=== PATIENT | female | born 1970 | race Caucasian/White ===

== ENCOUNTER 2019-04-28 14:50 | Emergency (ER) | payer SELFPAY ==
[2019-04-28 15:09] VITALS: BP 181/107; PULSE 106
--- NOTE | 2019-04-28 15:19 | EDM.PDOC ---
ED HPI GENERAL MEDICAL PROBLEM - General Chief Complaint: ENT Problem Stated Complaint: SINUS INFECTION Time Seen by Provider: 04/28/19 15:00 Source of Information: Reports: Patient History Limitations: Reports: No Limitations - History of Present Illness INITIAL COMMENTS - FREE TEXT/NARRATIVE: HISTORY AND PHYSICAL: History of present illness: Patient is a 49-year-old female presents to the ED today with concern of right sinus pain 3 weeks. Patient states 3 weeks ago she was seen in the clinic and given a Z-Gato which she states did not resolve her sinus pain. Patient states she has a history of sinus infections in the past which took it resolved with antibiotics. Patient states she has a history of lupus but denies any other health history. Patient denies any other symptoms or concerns. Patient denies fever, chills, chest pain, shortness of breath, or cough. Denies headache, neck stiff ness, change in vision, syncope, or near syncope. Denies nausea, vomiting, abdominal pain, diarrhea, constipation, or dysuria. Has not noted any blood in urine or stool. Patient has been eating and drinking appropriately. Review of systems: As per history of present illness and below otherwise all systems reviewed and negative. Past medical history: As per history of present illness and as reviewed below otherwise noncontributory. Surgical history: As per history of present illness and as reviewed below otherwise noncontributory. Social history: See social history for further information Family history: As per history of present illness and as reviewed below otherwise noncontributory. Physical exam: General: Patient is alert, oriented, and in no acute distress. Patient sitting comfortably on exam table. HEENT: Atraumatic, normocephalic, pupils equal and reactive bilaterally, negative for conjunctival pallor or scleral icterus, mucous membranes moist, TMs normal bilaterally, throat clear, neck supple, nontender, trachea midline. No drooling or trismus noted. No meningeal signs. No hot potato voice noted. Mild maxillary sinus tenderness to the right. Lungs: Clear to auscultation, breath sounds equal bilaterally, chest nontender. Heart: S1S2, regular rate and rhythm without overt murmur Abdomen: Soft, nondistended, nontender. Negative for masses or hepatosplenomegaly. Negative for costovertebral tenderness. Pelvis: Stable nontender. Genitourinary: Deferred. Rectal: Deferred. Skin: Intact, warm, dry. No lesions or rashes noted. Extremities: Atraumatic, negative for cords or calf pain. Neurovascular unremarkable. Neuro: Awake, alert, oriented. Cranial nerves II through XII unremarkable. Cerebellum unremarkable. Motor and sensory unremarkable throughout. Exam nonfocal. Notes: Importance for follow-up with a primary care provider. Voices understanding and is agreeable to plan of care. Denies any further questions or concerns at this time. Diagnostics: None Therapeutics: None Prescription: Augmentin Impression: Right acute maxillary sinusitis Plan: 1. Take medication as prescribed. You can alternate ibuprofen and Tylenol as directed for pain and discomfort. 2. Follow-up with her primary care provider as discussed. Return to the ED as needed and as discussed. Definitive disposition and diagnosis as appropriate pending reevaluation and review of above. General Pain Score (Numeric/FACES): 6 - Related Data Allergies Allergy/AdvReac Type Severity Reaction Status Date / Time No Known Allergies Allergy Verified 04/28/19 15:09 Home Meds: Home Meds Amoxicillin/Clavulanate K [Augmentin 875-125 MG] 1 tab PO BID 7 Days #14 tablet 04/28/19 [Rx] FLUoxetine [PROzac] 10 mg PO DAILY 04/28/19 [History] LORazepam 04/28/19 [History] Past Medical History Psychiatric History: Reports: Anxiety Immunologic History: Reports: SLE - Infectious Disease History Infectious Disease History: Reports: Chicken Pox Social & Family History - Family History Family Medical History: Noncontributory - Tobacco Use Smoking Status *Q: Never Smoker - Caffeine Use Caffeine Use: Reports: None - Recreational Drug Use Recreational Drug Use: No ED ROS GENERAL - Review of Systems Review Of Systems: ROS reveals no pertinent complaints other than HPI. ED EXAM, GENERAL - Physical Exam Exam: See Below (See dictation) Course - Vital Signs Last Recorded V/S: Last Vital Signs Temp 97.4 F 04/28/19 15:05 Pulse 106 H 04/28/19 15:05 Resp 16 04/28/19 15:05 BP 181/107 H 04/28/19 15:05 Pulse Ox 93 L 04/28/19 15:05 Departure - Departure Time of Disposition: 15:18 Disposition: Home, Self-Care 01 Clinical Impression: Acute maxillary sinusitis Qualifiers: Recurrence: recurrent Qualified Code(s): J01.01 - Acute recurrent maxillary sinusitis - Discharge Information Prescriptions: Amoxicillin/Clavulanate K [Augmentin 875-125 MG] 1 tab PO BID 7 Days #14 tablet Referrals: PCP,None [Primary Care Provider] - Additional Instructions: The following information is given to patients seen in the emergency department who are being discharged to home. This information is to outline your options for follow-up care. We provide all patients seen in our emergency department with a follow-up referral. The need for follow-up, as well as the timing and circumstances, are variable depending upon the specifics of your emergency department visit. If you don't have a primary care physician on staff, we will provide you with a referral. We always advise you to contact your personal physician following an emergency department visit to inform them of the circumstance of the visit and for follow-up with them and/or the need for any referrals to a consulting specialist. The emergency department will also refer you to a specialist when appropriate. This referral assures that you have the opportunity for follow-up care with a specialist. All of these measure are taken in an effort to provide you with optimal care, which includes your follow-up. Under all circumstances we always encourage you to contact your private physician who remains a resource for coordinating your care. When calling for follow-up care, please make the office aware that this follow-up is from your recent emergency room visit. If for any reason you are refused follow-up, please contact the [facility] at and asked to speak to the emergency department charge nurse. [facility] [address] [place] [id number] [facility] [address] [place] [id number] 1. Take medication as prescribed. You can alternate ibuprofen and Tylenol as directed for pain and discomfort. 2. Follow-up with her primary care provider as discussed. Return to the ED as needed and as discussed.
== END 2019-04-28 15:28 | disposition home or self-care (01) ==
LOC: MW.ED 14:50
DX: J01.01 Acute recurrent maxillary sinusitis (principal); F41.9 Anxiety disorder, unspecified; Z79.899 Other long term (current) drug therapy
CPT/HCPCS: 99283

== ENCOUNTER 2019-07-01 15:52 | Emergency (ER) | payer SELFPAY ==
[2019-07-01 16:10] VITALS: BP 138/93
[2019-07-01] MEDS ORDERED: Sodium Chloride 0.9% 1,000 ML IV ONE (16:24)
[2019-07-01] MEDS ORDERED: Albuterol/Ipratropium 3.0-0.5 MG/3 ML Neb Soln NEB ONE (16:24)
[2019-07-01] MEDS ORDERED: methylPREDNISolone Sodium Succinate 125 MG/2 ML SDV IVPUSH ONE (16:24)
--- NOTE | 2019-07-01 17:38 | CR ---
INDICATION: wheezing TECHNIQUE: Chest 1 view. COMPARISON: None. FINDINGS: Cardiovascular and mediastinum: Heart size and vasculature are normal in caliber and appearance. Mediastinum is within normal limits. Lungs and pleural space: Lungs are clear. No sign of infiltrate or mass. No sign of pleural effusion. No pneumothorax. Bones and soft tissues: No significant findings. IMPRESSION: Unremarkable chest. Dictated by: Dev Mercado MD @ 07/01/2019 17:36:17 (Electronically Signed)
[2019-07-01 17:42] LABS: BLOOD UREA NITROGEN,BUN 11 mg/dL (7.0-18.0); CARBON DIOXIDE,CO2 26.7 mmol/L (21.0-32.0); CHLORIDE,CL 99 mmol/L (98-107); GLUCOSE RANDOM 121 mg/dL (74-106); POTASSIUM,K 3.5 mmol/L (3.5-5.1); SODIUM,NA 137 mmol/L (136-145)
[2019-07-01] MEDS ORDERED: Acetaminophen/HYDROcodone 325-5 MG Tab PO ONE (17:51)
[2019-07-01] MEDS ORDERED: Levofloxacin 500 MG Tab PO ONE (17:53)
--- NOTE | 2019-07-01 18:01 | EDM.PDOC ---
ED HPI GENERAL MEDICAL PROBLEM - General Chief Complaint: General Stated Complaint: FLU LIKE SYMPTOMS Time Seen by Provider: 07/01/19 16:15 Source of Information: Reports: Patient History Limitations: Reports: No Limitations - History of Present Illness INITIAL COMMENTS - FREE TEXT/NARRATIVE: This 49 year old female presents to the ED with a chief complaint of coughing and wheezing that has gotten worse over the last week. She states that she is on Albuterol at home but that it has not been working this time. She also complains of frontal sinus infection that is chronic and also causes her to have headaches. She states that she has had the sinus problems for several months. She denies any chest pain SOB or any other symptoms at this time. Onset: Gradual (over one week.) Duration: Waxing/Waning Location: Reports: Chest. Denies: Radiates to (tightness and wheezing.) Severity: Mild (mild to moderate.) Improves with: Reports: Rest, Other (sometimes her breathing treatment.) Worsens with: Reports: Breathing (and physical activity) Context: Reports: Activity Associated Symptoms: Reports: Cough, Headaches (mild frontal headache for the past several months), Shortness of Breath (secondary to wheezing.). Denies: Chest Pain, cough w sputum, Diaphoresis, Fever/Chills, Nausea/Vomiting, Syncope generalized Pain Score (Numeric/FACES): 8 - Related Data Allergies Allergy/AdvReac Type Severity Reaction Status Date / Time No Known Allergies Allergy Verified 07/01/19 16:11 Home Meds: Home Meds FLUoxetine [PROzac] 10 mg PO DAILY 04/28/19 [History] LORazepam 04/28/19 [History] Levofloxacin [Levaquin] 500 mg PO DAILY 10 Days #10 tablet 07/01/19 [Rx] guaiFENesin/Dextromethorphan [Mucinex Dm ER 600-30 mg Tablet] 1 each PO Q12HR # 20 tab.er.12h 07/01/19 [Rx] Past Medical History Respiratory History: Reports: Asthma Musculoskeletal History: Reports: RA Psychiatric History: Reports: Anxiety Other Endocrine/Metabolic History: lupus Immunologic History: Reports: SLE - Infectious Disease History Infectious Disease History: Reports: Chicken Pox Social & Family History - Family History Family Medical History: Noncontributory - Tobacco Use Smoking Status *Q: Never Smoker - Caffeine Use Caffeine Use: Reports: None - Recreational Drug Use Recreational Drug Use: No ED ROS GENERAL - Review of Systems Review Of Systems: See Below Constitutional: Reports: Fever (mild fever.) HEENT: Reports: Sinus Problem (frontal) Respiratory: Reports: Wheezing, Cough. Denies: Pleuritic Chest Pain, Sputum, Hemoptysis Cardiovascular: Reports: No Symptoms. Denies: Dyspnea on Exertion, Edema, Lightheadedness, Orthopnea, Palpitations, Syncope Endocrine: Reports: No Symptoms GI/Abdominal: Reports: No Symptoms : Reports: No Symptoms Musculoskeletal: Reports: No Symptoms Skin: Reports: No Symptoms Neurological: Reports: No Symptoms Psychiatric: Reports: No Symptoms Hematologic/Lymphatic: Reports: No Symptoms Immunologic: Reports: No Symptoms ED EXAM, GENERAL - Physical Exam Exam: See Below Exam Limited By: No Limitations General Appearance: Alert, Mild Distress (she is noted to be wheezing.) Eye Exam: Bilateral Eye: Normal Fundi, Normal Inspection, PERRL Ears: Normal External Exam, Normal Canal, Hearing Grossly Normal, Normal TMs Ear Exam: Bilateral Ear: Auricle Normal, Canal Normal, TM normal Nose: Other (nasal congestion noted) Throat/Mouth: Normal Inspection, Normal Lips, Normal Teeth, Normal Gums, Normal Oropharynx, Normal Voice, No Airway Compromise Head: Atraumatic, Normocephalic, Sinus Tenderness (Frontal area to percussion.) Neck: Normal Inspection, Supple, Non-Tender, Full Range of Motion Respiratory/Chest: No Accessory Muscle Use, Wheezing (in the apex of the chest.) , Prolonged Expiration. No: Stridor, Pleural Rub, Accessory Muscle Use Cardiovascular: Normal Peripheral Pulses, Regular Rate, Rhythm, No Edema, No Gallop, No JVD, No Murmur, No Rub Peripheral Pulses: 3+: Radial (L), Radial (R), Dorsalis Pedis (L), Dorsalis Pedis (R), 4+: Carotid (L), Carotid (R) GI/Abdominal: Normal Bowel Sounds, Soft, Non-Tender, No Organomegaly, No Distention, No Abnormal Bruit, No Mass Back Exam: Normal Inspection, Full Range of Motion, NT Extremities: Normal Inspection, Normal Range of Motion, Non-Tender, Normal Capillary Refill, No Pedal Edema Neurological: Alert, Oriented, CN II-XII Intact, Normal Cognition, Normal Gait, Normal Reflexes, No Motor/Sensory Deficits Psychiatric: Normal Affect, Normal Mood Skin Exam: Warm, Dry, Intact, Normal Color, No Rash Lymphatic: No Adenopathy Course - Vital Signs Last Recorded V/S: Last Vital Signs Temp 96.8 F 07/01/19 16:09 Pulse 102 H 07/01/19 16:09 Resp 20 07/01/19 16:09 BP 138/93 H 07/01/19 16:09 Pulse Ox 96 07/01/19 16:09 - Orders/Labs/Meds Orders: Active Orders 24 hr Category Date Time Status RT Aerosol Therapy [RC] ASDIRECTED Care 07/01/19 16:25 Active levoFLOXacin [Levaquin] Med 07/01/19 17:53 Once 500 mg PO ONETIME ONE Medication Orders Levofloxacin (Levaquin) 500 mg PO ONETIME ONE Stop: 07/01/19 17:54 Labs: Laboratory Tests 07/01/19 07/01/19 Range/Units 16:50 16:50 WBC 13.76 H (4.0-11.0) K/uL RBC 5.08 (4.30-5.90) M/uL Hgb 14.3 (12.0-16.0) g/dL Hct 43.2 (36.0-46.0) % MCV 85.0 (80.0-98.0) fL MCH 28.1 (27.0-32.0) pg MCHC 33.1 (31.0-37.0) g/dL RDW Std Deviation 41.5 (28.0-62.0) fl RDW Coeff of Lorin 13 (11.0-15.0) % Plt Count 317 (150-400) K/uL MPV 9.50 (7.40-12.00) fL Neut % (Auto) 59.3 (48.0-80.0) % Lymph % (Auto) 33.2 (16.0-40.0) % Dickinson % (Auto) 5.0 (0.0-15.0) % Eos % (Auto) 2.3 (0.0-7.0) % Baso % (Auto) 0.2 (0.0-1.5) % Neut # (Auto) 8.2 H (1.4-5.7) K/uL Lymph # (Auto) 4.6 H (0.6-2.4) K/uL Dickinson # (Auto) 0.7 (0.0-0.8) K/uL Eos # (Auto) 0.3 (0.0-0.7) K/uL Baso # (Auto) 0.0 (0.0-0.1) K/uL Nucleated RBC % 0.0 /100WBC Nucleated RBCs # 0 K/uL Sodium 137 (136-145) mmol/L Potassium 3.5 (3.5-5.1) mmol/L Chloride 99 (98-107) mmol/L Carbon Dioxide 26.7 (21.0-32.0) mmol/L BUN 11 (7.0-18.0) mg/dL Creatinine 0.8 (0.6-1.0) mg/dL Est Cr Clr Drug Dosing 68.02 mL/min Estimated GFR (MDRD) > 60.0 ml/min Glucose 121 H (74-106) mg/dL Calcium 9.0 (8.5-10.1) mg/dL Magnesium 1.9 (1.8-2.4) mg/dL Total Bilirubin 0.7 (0.2-1.0) mg/dL AST 26 (15-37) IU/L ALT 31 (14-63) IU/L Alkaline Phosphatase 101 (46-116) U/L Total Protein 8.4 H (6.4-8.2) g/dL Albumin 3.7 (3.4-5.0) g/dL Globulin 4.7 H (2.6-4.0) g/dL Albumin/Globulin Ratio 0.8 L (0.9-1.6) Meds: Medications Generic Name Dose Route Start Last Admin Trade Name Freq PRN Reason Stop Dose Admin Levofloxacin 500 mg 07/01/19 17:53 Levaquin PO 07/01/19 17:54 ONETIME ONE Discontinued Medications Generic Name Dose Route Start Last Admin Trade Name Freq PRN Reason Stop Dose Admin Hydrocodone Bitart/Acetaminophen 1 tab 07/01/19 17:51 [place] 325-5 Mg PO 07/01/19 17:52 ONETIME ONE Albuterol/Ipratropium 3 ml 07/01/19 16:24 07/01/19 16:36 Duoneb 3.0-0.5 Mg/3 Ml NEB 07/01/19 16:25 3 ml ONETIME ONE Administration Sodium Chloride 1,000 mls @ 999 mls/hr 07/01/19 16:24 07/01/19 16:38 Normal Saline IV 07/01/19 17:24 999 mls/hr .Bolus ONE Administration Methylprednisolone Sodium Succinate 125 mg 07/01/19 16:24 07/01/19 16:37 Solu-Medrol IVPUSH 07/01/19 16:25 125 mg ONETIME ONE Administration Departure - Departure Time of Disposition: 18:11 Disposition: Home, Self-Care 01 Condition: Good (The patient is much improved after duoneb and solu-medrol with 1,000 ml of NS.) Clinical Impression: Acute maxillary sinusitis Qualifiers: Recurrence: recurrent Qualified Code(s): J01.01 - Acute recurrent maxillary sinusitis Asthma exacerbation attacks Qualifiers: Asthma severity: moderate - Discharge Information *PRESCRIPTION DRUG MONITORING PROGRAM REVIEWED*: No *COPY OF PRESCRIPTION DRUG MONITORING REPORT IN PATIENT GABRIELLE: No Instructions: Asthma, Adult, Sinusitis, Adult Referrals: PCP,Not In Area [Primary Care Provider] - Additional Instructions: Follow up with your PCP in the next two to four days. Take all medications as directed. Drink plenty of clear liquids over the next two to three days. Return to the ED if your condition gets worse or should you have any other concerns. Sepsis Event Note - Evaluation Sepsis Screening Result: No Definite Risk - Focused Exam Vital Signs: Vital Signs Temp Pulse Resp BP Pulse Ox 07/01/19 16:09 96.8 F 102 H 20 138/93 H 96 Date Exam was Performed: 07/01/19 Time Exam was Performed: 17:55 - My Orders Last 24 Hours: My Active Orders 07/01/19 16:25 RT Aerosol Therapy [RC] ASDIRECTED 07/01/19 17:53 levoFLOXacin [Levaquin] 500 mg PO ONETIME ONE - Assessment/Plan Last 24 Hours: My Active Orders 07/01/19 16:25 RT Aerosol Therapy [RC] ASDIRECTED 07/01/19 17:53 levoFLOXacin [Levaquin] 500 mg PO ONETIME ONE
[2019-07-01 19:17] VITALS: PULSE 96
== END 2019-07-01 18:50 | disposition home or self-care (01) ==
LOC: MW.ED 15:52
DX: J01.01 Acute recurrent maxillary sinusitis (principal); J45.901 Unspecified asthma with (acute) exacerbation; M06.9 Rheumatoid arthritis, unspecified; F41.9 Anxiety disorder, unspecified; Z79.899 Other long term (current) drug therapy
CPT/HCPCS: 36415; 71045; 80053; 83735; 85025; 87804; 94640; 96361; 96374; 99285; A9270; J2930; J7030; J7620-GY

== ENCOUNTER 2019-08-28 10:09 | Emergency (ER) | payer SELFPAY ==
--- NOTE | 2019-08-28 10:53 | CR ---
Left elbow: 3 views of the left elbow were obtained. Comparison: No prior elbow study. Joint spaces are maintained. No joint effusion is identified. No acute fracture or other bony abnormality is identified. Impression: 1. No abnormality is identified on left elbow exam. Diagnostic code #1 This report was dictated in [place] Standard Time
[2019-08-28 10:55] VITALS: BP 138/98; PULSE 103
[2019-08-28] MEDS ORDERED: Diphtheria,Pertussis(Acell),Tetanus Vaccine 0.5 ML Syringe IM ONE (11:39)
[2019-08-28] MEDS ORDERED: Octyl 2-Cyanoacrylate 1 Tube TOP ONE (11:39)
--- NOTE | 2019-08-28 11:41 | EDM.PDOC ---
ED HPI GENERAL MEDICAL PROBLEM - General Chief Complaint: Upper Extremity Injury/Pain Stated Complaint: FELL DOWN STAIRS LEFT ELBOW PAIN Time Seen by Provider: 08/28/19 11:32 Source of Information: Reports: Patient History Limitations: Reports: No Limitations - History of Present Illness INITIAL COMMENTS - FREE TEXT/NARRATIVE: HISTORY AND PHYSICAL: History of present illness: Patient is a 49-year-old female who presents to the ED today with concern of left elbow pain and left knee pain after a fall that occurred earlier this morning. Patient states she was walking down the stairs and the stairs in her apartment building are too narrow. Patient states the step itself is not big enough to fit a full length of the foot and was built incorrectly. Patient states she was with her and slipped down the last 2-3 steps and hit her left elbow on the step. Patient states she is also has some left knee pain but her main concern is her left elbow. Patient states she did not hit her head or lose consciousness and was not dizzy before the event. Patient denies any other symptoms or concerns. Patient states she has not up-to-date on her tetanus. Patient denies fever, chills, chest pain, shortness of breath, or cough. Denies headache, neck stiff ness, change in vision, syncope, or near syncope. Denies nausea, vomiting, abdominal pain, diarrhea, constipation, or dysuria. Has not noted any blood in urine or stool. Patient has been eating and drinking appropriately. Review of systems: As per history of present illness and below otherwise all systems reviewed and negative. Past medical history: As per history of present illness and as reviewed below otherwise noncontributory. Surgical history: As per history of present illness and as reviewed below otherwise noncontributory. Social history: See social history for further information Family history: As per history of present illness and as reviewed below otherwise noncontributory. Physical exam: General: Patient is alert, oriented, and in no acute distress. Patient sitting comfortably on exam table. HEENT: Atraumatic, normocephalic, pupils equal and reactive bilaterally, negative for conjunctival pallor or scleral icterus, mucous membranes moist, TMs normal bilaterally, throat clear, neck supple, nontender, trachea midline. No drooling or trismus noted. No meningeal signs. No hot potato voice noted. Lungs: Clear to auscultation, breath sounds equal bilaterally, chest nontender. Heart: S1S2, regular rate and rhythm without overt murmur Abdomen: Soft, nondistended, nontender. Negative for masses or hepatosplenomegaly. Negative for costovertebral tenderness. Pelvis: Stable nontender. Genitourinary: Deferred. Rectal: Deferred. Skin: Intact, warm, dry. No lesions or rashes noted. Extremities: There is a superficial 1 cm laceration over the left elbow without bleeding. Patient has full range of motion of complete bilateral upper and lower extremities but does have mild pain to range of motion of the left elbow. No obvious deformity of the upper or lower extremities. Otherwise, atraumatic , negative for cords or calf pain. Neurovascular unremarkable. Neuro: Awake, alert, oriented. Cranial nerves II through XII unremarkable. Cerebellum unremarkable. Motor and sensory unremarkable throughout. Exam nonfocal. Notes: Discussed importance for follow-up with a primary care provider. Voices understanding and is agreeable to plan of care. Denies any further questions or concerns at this time. Diagnostics: Left elbow x-ray (Knee XR and labwork/EKG for fall workup offered but patient declines) Therapeutics: Tdap, Dermabond Prescription: None Impression: Left elbow injury Left elbow laceration Plan: 1. Rest, ice, elevate the affected extremity. You can apply ice 15 minutes on, 15 minutes off. 2. Tylenol and/or Ibuprofen as directed for pain management or discomfort. 3. Follow up with the primary care provider as discussed. Return to the ED as needed and as discussed. Definitive disposition and diagnosis as appropriate pending reevaluation and review of above. Left Elbow Pain Score (Numeric/FACES): 7 - Related Data Allergies Allergy/AdvReac Type Severity Reaction Status Date / Time No Known Allergies Allergy Verified 08/28/19 10:52 Home Meds: Home Meds FLUoxetine [PROzac] 10 mg PO DAILY 04/28/19 [History] LORazepam 0.5 mg PO BEDTIME 04/28/19 [History] Past Medical History Respiratory History: Reports: Asthma Musculoskeletal History: Reports: RA Psychiatric History: Reports: Anxiety, PTSD Other Endocrine/Metabolic History: lupus Immunologic History: Reports: SLE - Infectious Disease History Infectious Disease History: Reports: Chicken Pox - Past Surgical History GI Surgical History: Reports: Cholecystectomy Social & Family History - Family History Family Medical History: Noncontributory - Tobacco Use Smoking Status *Q: Never Smoker - Caffeine Use Caffeine Use: Reports: Coffee - Recreational Drug Use Recreational Drug Use: No Review of Systems - Review of Systems Review Of Systems: Comprehensive ROS is negative, except as noted in HPI. ED EXAM, GENERAL - Physical Exam Exam: See Below (see dictation) ED TRAUMA EXTREMITY PROCEDURES - Laceration/Wound Repair Left Elbow Lac/Wound Length In cm: 1 Appearance: Superficial, Linear Distal NVT: Neuro & Vascular Intact, No Tendon Injury Skin Prep: Chlorhexidine (Hibiciens) Saline Irrigation (cc's): 30 Exploration/Debridement/Repair: Wound Explored, In a Bloodless Field, Explored to Base, No Foreign Material Found Closed With: Dermabond Drain Placement: No Sterile Dressing Applied: Nurse Tetanus Status Addressed: Yes Complications: No Course - Vital Signs Last Recorded V/S: Last Vital Signs Temp Pulse 103 H 08/28/19 10:53 Resp 17 08/28/19 10:53 BP 138/98 H 08/28/19 10:53 Pulse Ox 96 08/28/19 10:53 - Orders/Labs/Meds Orders: Active Orders 24 hr Category Date Time Status Vaccines to be Administered [RC] PER UNIT ROUTINE Care 08/28/19 11:39 Ordered Knee 3V Lt [CR] Stat Exams 08/28/19 11:35 Stop Req Meds: Medications Discontinued Medications Generic Name Dose Route Start Last Admin Trade Name Freq PRN Reason Stop Dose Admin Diphtheria/Tetanus/Acell Pertussis 0.5 ml 08/28/19 11:39 Adacel IM 08/28/19 11:40 .ONCE ONE Octyl Cyanoacrylate 1 applic 08/28/19 11:39 Dermabond Advance TOP 08/28/19 11:40 ONETIME ONE Departure - Departure Time of Disposition: 11:49 Disposition: Home, Self-Care 01 Clinical Impression: Elbow laceration Qualifiers: Encounter type: initial encounter Laterality: left Qualified Code(s): S51.012A - Laceration without foreign body of left elbow, initial encounter Elbow injury Qualifiers: Encounter type: initial encounter Laterality: left Qualified Code(s): S59.902A - Unspecified injury of left elbow, initial encounter - Discharge Information Referrals: PCP,None [Primary Care Provider] - Forms: ED Department Discharge Additional Instructions: The following information is given to patients seen in the emergency department who are being discharged to home. This information is to outline your options for follow-up care. We provide all patients seen in our emergency department with a follow-up referral. The need for follow-up, as well as the timing and circumstances, are variable depending upon the specifics of your emergency department visit. If you don't have a primary care physician on staff, we will provide you with a referral. We always advise you to contact your personal physician following an emergency department visit to inform them of the circumstance of the visit and for follow-up with them and/or the need for any referrals to a consulting specialist. The emergency department will also refer you to a specialist when appropriate. This referral assures that you have the opportunity for follow-up care with a specialist. All of these measure are taken in an effort to provide you with optimal care, which includes your follow-up. Under all circumstances we always encourage you to contact your private physician who remains a resource for coordinating your care. When calling for follow-up care, please make the office aware that this follow-up is from your recent emergency room visit. If for any reason you are refused follow-up, please contact the [facility] Emergency Department at and asked to speak to the emergency department charge nurse. [facility] [address] [place] [id number] [place] [address] 1. Rest, ice, elevate the affected extremity. You can apply ice 15 minutes on, 15 minutes off. 2. Tylenol and/or Ibuprofen as directed for pain management or discomfort. 3. Follow up with the primary care provider as discussed. Return to the ED as needed and as discussed. Sepsis Event Note - Evaluation Sepsis Screening Result: No Definite Risk - Focused Exam Vital Signs: Vital Signs Pulse Resp BP Pulse Ox 08/28/19 10:53 103 H 17 138/98 H 96 Date Exam was Performed: 08/28/19 Time Exam was Performed: 11:45 - My Orders Last 24 Hours: My Active Orders 08/28/19 11:35 Knee 3V Lt [CR] Stat 08/28/19 11:39 Vaccines to be Administered [RC] PER UNIT ROUTINE - Assessment/Plan Last 24 Hours: My Active Orders 08/28/19 11:35 Knee 3V Lt [CR] Stat 08/28/19 11:39 Vaccines to be Administered [RC] PER UNIT ROUTINE
== END 2019-08-28 12:25 | disposition home or self-care (01) ==
LOC: MW.ED 10:09
DX: S51.012A Laceration without foreign body of left elbow, initial encounter (principal); Z23 Encounter for immunization; F41.9 Anxiety disorder, unspecified; M06.9 Rheumatoid arthritis, unspecified; Z79.899 Other long term (current) drug therapy; W10.8XXA Fall (on) (from) other stairs and steps, initial encounter; Y93.01 Activity, walking, marching and hiking; Y92.039 Unspecified place in apartment as the place of occurrence of the external cause
CPT/HCPCS: 12001; 73080; 90471; 90715; 99283; A9270

== ENCOUNTER 2019-12-30 11:21 | Emergency (ER) | payer SELFPAY ==
[2019-12-30 11:42] VITALS: PULSE 105
--- NOTE | 2019-12-30 11:48 | EDM.PDOC ---
ED HPI GENERAL MEDICAL PROBLEM - General Chief Complaint: Lower Extremity Injury/Pain Stated Complaint: PAIN IN LOWER LEFT LEG Time Seen by Provider: 12/30/19 11:46 Source of Information: Reports: Patient History Limitations: Reports: No Limitations - History of Present Illness INITIAL COMMENTS - FREE TEXT/NARRATIVE: HISTORY AND PHYSICAL: History of present illness: Patient is a 49-year-old female who presents to the emergency room with complaints of proximal left lateral thigh pain. She has noticed this for approximately 1 week and the pain increases with weightbearing or palpation of the site. She attributes this possibly to having done a long car ride to and from [place] over Mother's Day weekend (about 3 weeks ago). She denies any injury, trauma or falls. The area that is causing her pain she can pinpoint with 2 fingers and feels like she can touch the area. Denies any redness, swelling or bruising to the site. Denies any insect bites or lesions pre viously. Review of systems: As per history of present illness and below otherwise all systems reviewed and negative. Past medical history: As per history of present illness and as reviewed below otherwise noncontributory. Surgical history: As per history of present illness and as reviewed below otherwise noncontributory. Social history: See social history for further information Family history: As per history of present illness and as reviewed below otherwise noncontributory. Physical exam: General: Well-developed and well-nourished 49-year-old female. Alert and oriented. Nontoxic-appearing and in no acute distress. HEENT: Atraumatic, normocephalic, pupils equal and reactive bilaterally, negative for conjunctival pallor or scleral icterus, mucous membranes moist, neck supple, nontender, trachea midline. No drooling or trismus noted. No meningeal signs. No hot potato voice noted. Lungs: Clear to auscultation, breath sounds equal bilaterally, chest nontender. Heart: S1S2, regular rate and rhythm without overt murmur Abdomen: Soft, nondistended, nontender. Negative for masses or hepatosplenomegaly. Negative for costovertebral tenderness. Skin: No erythema, soft tissue swelling or bruising noted to the area in question. Intact, warm, dry. No lesions or rashes noted. Extremities: Atraumatic, moves all extremities per self without difficulty or deficits, negative for cords or calf pain. Patient has localized area of tenderness approximately the size of a quarter to the left proximal lateral left thigh along her hamstring. Pain is elicited with palpation or flexion/extension of the hamstring. Neurovascular unremarkable. Neuro: Awake, alert, oriented. Cranial nerves II through XII unremarkable. Cerebellum unremarkable. Motor and sensory unremarkable throughout. Exam nonfocal. Notes: I did have Dr Gomez, supervising physician, look at the site - he agrees that we should proceed with an ultrasound. The area appears to be muscular inflammation. Ultrasound shows no abnormalities noted at the painful area. No discrete cyst or abnormality is seen. We did discuss the importance of following up with her primary care provider for further evaluation if she does not feel improved over the next couple days. Medication and supportive care measures were reviewed and discussed. Voices understanding and is agreeable to plan of care. Denies any further questions or concerns at this time. Diagnostics: U/S extremity Therapeutics: None Prescription: Diclofenac Impression: Thigh Pain Plan: 1. Gentle heat and massage to the area. 2. Take the Voltaren (anti-inflammatory) as directed with food. Do not take any additional NSAIDs such as Ibuprofen or Aleve with this medication. You can take Tylenol for breakthrough pain. 3. I would like you to follow up with your primary doctor if this pain does not improve over the next few days; you may need further imagining or labs to assess if your Lupus has any factor in this. 4. Return to the ED as needed as discussed. Definitive disposition and diagnosis as appropriate pending reevaluation and review of above. Left posterior Thigh Pain Score (Numeric/FACES): 7 - Related Data Allergies Allergy/AdvReac Type Severity Reaction Status Date / Time No Known Allergies Allergy Verified 12/30/19 11:42 Home Meds: Home Meds FLUoxetine [PROzac] 20 mg PO DAILY 04/28/19 [History] LORazepam 0.5 mg PO BEDTIME 04/28/19 [History] Diclofenac Sodium [Voltaren] 75 mg PO BIDMEALS PRN #30 tab.cr 12/30/19 [Rx] Past Medical History Respiratory History: Reports: Asthma Musculoskeletal History: Reports: RA Psychiatric History: Reports: Anxiety, PTSD Other Endocrine/Metabolic History: lupus Immunologic History: Reports: SLE - Infectious Disease History Infectious Disease History: Reports: Chicken Pox - Past Surgical History GI Surgical History: Reports: Cholecystectomy Social & Family History - Family History Family Medical History: Noncontributory - Caffeine Use Caffeine Use: Reports: Coffee Review of Systems - Review of Systems Review Of Systems: Comprehensive ROS is negative, except as noted in HPI. ED EXAM, GENERAL - Physical Exam Exam: See Below (See dictation) Course - Vital Signs Last Recorded V/S: Last Vital Signs Temp 96.3 F L 12/30/19 11:40 Pulse 105 H 12/30/19 11:40 Resp 16 12/30/19 11:40 BP 168/98 H 12/30/19 11:40 Pulse Ox 96 12/30/19 11:40 Departure - Departure Time of Disposition: 12:34 Disposition: Home, Self-Care 01 Clinical Impression: Thigh pain, musculoskeletal Qualifiers: Laterality: left Qualified Code(s): M79.652 - Pain in left thigh - Discharge Information Prescriptions: Diclofenac Sodium [Voltaren] 75 mg PO BIDMEALS PRN #30 tab.cr PRN Reason: Pain Instructions: Hamstring Strain Referrals: PCP,Not In Area [Primary Care Provider] - Forms: ED Department Discharge Additional Instructions: The following information is given to patients seen in the emergency department who are being discharged to home. This information is to outline your options for follow-up care. We provide all patients seen in our emergency department with a follow-up referral. The need for follow-up, as well as the timing and circumstances, are variable depending upon the specifics of your emergency department visit. If you don't have a primary care physician on staff, we will provide you with a referral. We always advise you to contact your personal physician following an emergency department visit to inform them of the circumstance of the visit and for follow-up with them and/or the need for any referrals to a consulting specialist. The emergency department will also refer you to a specialist when appropriate. This referral assures that you have the opportunity for follow-up care with a specialist. All of these measure are taken in an effort to provide you with optimal care, which includes your follow-up. Under all circumstances we always encourage you to contact your private physician who remains a resource for coordinating your care. When calling for follow-up care, please make the office aware that this follow-up is from your recent emergency room visit. If for any reason you are refused follow-up, please contact the [facility] Emergency Department at and asked to speak to the emergency department charge nurse. [facility] [address] [place] [address] [facility] [address] [place] [id number] 1. Gentle heat and massage to the area. 2. Take the Voltaren (anti-inflammatory) as directed with food. Do not take any additional NSAIDs such as Ibuprofen or Aleve with this medication. You can take Tylenol for breakthrough pain. 3. I would like you to follow up with your primary doctor if this pain does not improve over the next few days; you may need further imagining or labs to assess if your Lupus has any factor in this. 4. Return to the ED as needed as discussed. Sepsis Event Note (ED) - Evaluation Sepsis Screening Result: No Definite Risk - Focused Exam Vital Signs: Vital Signs Temp Pulse Resp BP Pulse Ox 12/30/19 11:40 96.3 F L 105 H 16 168/98 H 96
--- NOTE | 2019-12-30 12:20 | US ---
Left lateral thigh ultrasound: Multiple real-time images of the lateral thigh were obtained. Findings: No discrete cyst or solid abnormality is seen. Nothing is appreciated to correlate to the painful area within the posterior and lateral mid thigh. Impression: 1. No abnormality is identified as described above. Diagnostic code #1 This report was dictated in MDT
[2019-12-30 12:58] VITALS: BP 139/92
== END 2019-12-30 12:50 | disposition home or self-care (01) ==
LOC: MW.ED 11:21
DX: M79.652 Pain in left thigh (principal); J45.909 Unspecified asthma, uncomplicated; F41.9 Anxiety disorder, unspecified; M32.9 Systemic lupus erythematosus, unspecified
CPT/HCPCS: 76881-26-LT; 76881-LT; 99283

== ENCOUNTER 2023-08-29 11:49 | Emergency (ER) | payer BC ==
[2023-08-29 13:11] LABS: BASOPHILS ABSOLUTE AUTO 0.03 K/uL (0.00-0.20); BASOPHILS PERCENT AUTO 0.4 % (0.0-1.0); EOSINOPHILS ABSOLUTE AUTO 0.23 K/uL (0.00-0.45); EOSINOPHILS PERCENT AUTO 2.9 % (0.0-6.0); HEMATOCRIT 39.4 % (37.0-47.0); HEMOGLOBIN 12.7 g/dL (12.0-16.0); IMMATURE GRAN ABSOLUTE AUTO 0.02 K/uL (0.00-0.05); IMMATURE GRAN PERCENT AUTO 0.3 % (0.0-0.4); LYMPHOCYTES ABSOLUTE AUTO 3.25 K/uL (1.00-4.80); LYMPHOCYTES PERCENT AUTO 41.5 % (24.0-44.0); MEAN CORPUSCULAR HEMOGLOBIN 26.3 pg (28.0-32.0); MEAN CORPUSCULAR HGB CONC 32.2 g/dL (32.0-36.0); MEAN CORPUSCULAR VOLUME 81.7 fL (83.0-99.0); MONOCYTES ABSOLUTE AUTO 0.64 K/uL (0.00-0.80); MONOCYTES PERCENT AUTO 8.2 % (0.0-8.0); NEUTROPHILS ABSOLUTE AUTO 3.66 K/uL (1.80-7.70); NEUTROPHILS PERCENT AUTO 46.7 % (41.0-71.0); PLATELET COUNT,PLT 285 K/uL (150-400); RED BLOOD CELL COUNT 4.82 M/uL (4.10-5.30); WHITE BLOOD CELL COUNT,WBC 7.83 K/uL (3.9-11.3)
[2023-08-29 13:18] LABS: APPEARANCE,URINE CLEAR; BILIRUBIN,URINE NEGATIVE (NEGATIVE); GLUCOSE,URINE NEGATIVE (NEGATIVE); KETONES,URINE NEGATIVE (NEGATIVE); LEUKOCYTE ESTERASE,URINE NEGATIVE (NEGATIVE); NITRITE,URINE NEGATIVE (NEGATIVE); OCCULT BLOOD,URINE SMALL (NEGATIVE); PH,URINE 6.5 (5.0-8.0); PROTEIN,URINE NEGATIVE (NEGATIVE); UROBILINOGEN,URINE 0.2 EU/dL (<2.0)
[2023-08-29 13:20] LABS: COLOR,URINE STRAW
[2023-08-29] MEDS: Sodium Chloride 0.9% 1,000 ML IV ONE (13:22)
[2023-08-29] MEDS: Ondansetron 4 MG/2 ML SDV IVPUSH ONE (13:22)
[2023-08-29] MEDS: Ketorolac 30 MG/ML SDV IVPUSH ONE (13:22)
[2023-08-29] MEDS: Sodium Chloride 0.9% 2.5 ML Syringe FLUSH PRN (13:23)
[2023-08-29] MEDS: Sodium Chloride 0.9% 10 ML Syringe FLUSH PRN (13:23)
[2023-08-29 13:25] LABS: BACTERIA,URINE NOT SEEN (NEGATIVE); EPITHELIAL CELLS,URINE RARE (NONE-FEW); RBC,URINE 0-1 (0-2/HPF); WBC,URINE NONE SEEN (0-5/HPF)
[2023-08-29 13:35] LABS: A/G RATIO 0.7 (0.9-1.6); ALBUMIN 3.2 g/dL (3.4-5.0); BILIRUBIN TOTAL 0.5 mg/dL (0.2-1.0); CALCIUM 9.2 mg/dL (8.5-10.1); CARBON DIOXIDE,CO2 27.2 mmol/L (21.0-32.0); CREATININE 0.9 mg/dL (0.6-1.0); EST CRCL DRUG DOSING (CG) 57.83 mL/min; POTASSIUM,K 4.1 mmol/L (3.5-5.1); PROTEIN TOTAL,TP 7.9 g/dL (6.4-8.2)
[2023-08-29 15:35] LABS: APPEARANCE,URINE CLEAR; BILIRUBIN,URINE NEGATIVE (NEGATIVE); COLOR,URINE YELLOW; GLUCOSE,URINE NEGATIVE (NEGATIVE); KETONES,URINE NEGATIVE (NEGATIVE); LEUKOCYTE ESTERASE,URINE NEGATIVE (NEGATIVE); NITRITE,URINE NEGATIVE (NEGATIVE); OCCULT BLOOD,URINE NEGATIVE (NEGATIVE); PROTEIN,URINE NEGATIVE (NEGATIVE); UROBILINOGEN,URINE 0.2 EU/dL (<2.0)
[2023-08-29] MEDS: Iopamidol 755 MG/ML 500 ML Multipack Bottle IVPUSH STA (15:35)
[2023-08-29 17:34] VITALS: BP 124/85; PULSE 83
== END 2023-08-29 17:25 | disposition home or self-care (01) ==
LOC: MW.ED 11:49
DX: R10.32 Left lower quadrant pain (principal); N32.9 Bladder disorder, unspecified; J45.909 Unspecified asthma, uncomplicated
CPT/HCPCS: 36415; 74177; 80053; 81001; 81003; 83690; 84703; 85025; 96361; 96374; 96375; 99284; J1885; J2405; J3490; J7030; Q9967

== ENCOUNTER 2024-01-12 17:56 | Emergency (ER) | payer BC ==
[2024-01-12] MEDS: Meclizine 25 MG Tab PO ONE (19:11)
[2024-01-12] MEDS: Sodium Chloride 0.9% 1,000 ML IV ONE (19:11)
[2024-01-12 19:12] LABS: BASOPHILS ABSOLUTE AUTO 0.04 K/uL (0.00-0.20); BASOPHILS PERCENT AUTO 0.3 % (0.0-1.0); EOSINOPHILS ABSOLUTE AUTO 0.14 K/uL (0.00-0.45); EOSINOPHILS PERCENT AUTO 1.2 % (0.0-6.0); HEMATOCRIT 44.5 % (37.0-47.0); HEMOGLOBIN 14.4 g/dL (12.0-16.0); IMMATURE GRAN ABSOLUTE AUTO 0.04 K/uL (0.00-0.05); IMMATURE GRAN PERCENT AUTO 0.3 % (0.0-0.4); LYMPHOCYTES ABSOLUTE AUTO 2.86 K/uL (1.00-4.80); MEAN CORPUSCULAR HEMOGLOBIN 26.8 pg (28.0-32.0); MEAN CORPUSCULAR HGB CONC 32.4 g/dL (32.0-36.0); MEAN CORPUSCULAR VOLUME 82.9 fL (83.0-99.0); MONOCYTES ABSOLUTE AUTO 0.81 K/uL (0.00-0.80); MONOCYTES PERCENT AUTO 7.1 % (0.0-8.0); NEUTROPHILS ABSOLUTE AUTO 7.57 K/uL (1.80-7.70); NEUTROPHILS PERCENT AUTO 66.1 % (41.0-71.0); PLATELET COUNT,PLT 311 K/uL (150-400); RED BLOOD CELL COUNT 5.37 M/uL (4.10-5.30); WHITE BLOOD CELL COUNT,WBC 11.46 K/uL (3.9-11.3)
[2024-01-12] MEDS: Sodium Chloride 0.9% 10 ML Syringe FLUSH PRN (19:13)
[2024-01-12] MEDS: Ondansetron 4 MG/2 ML SDV IVPUSH ONE (19:13)
[2024-01-12] MEDS: Sodium Chloride 0.9% 2.5 ML Syringe FLUSH PRN (19:13)
[2024-01-12 19:38] LABS: A/G RATIO 0.7 (0.9-1.6); ALBUMIN 3.6 g/dL (3.4-5.0); BILIRUBIN TOTAL 0.8 mg/dL (0.2-1.0); CALCIUM 9.2 mg/dL (8.5-10.1); CARBON DIOXIDE,CO2 29.2 mmol/L (21.0-32.0); EST CRCL DRUG DOSING (CG) 52.05 mL/min; POTASSIUM,K 4.2 mmol/L (3.5-5.1); PROTEIN TOTAL,TP 8.8 g/dL (6.4-8.2)
[2024-01-12] MEDS: Iopamidol 755 MG/ML 500 ML Multipack Bottle IVPUSH STA (19:41)
[2024-01-12 20:41] LABS: BILIRUBIN,URINE NEGATIVE (NEGATIVE); COLOR,URINE YELLOW; GLUCOSE,URINE NEGATIVE (NEGATIVE); KETONES,URINE NEGATIVE (NEGATIVE); LEUKOCYTE ESTERASE,URINE TRACE (NEGATIVE); NITRITE,URINE POSITIVE (NEGATIVE); OCCULT BLOOD,URINE LARGE (NEGATIVE); PROTEIN,URINE NEGATIVE (NEGATIVE); UROBILINOGEN,URINE 0.2 EU/dL (<2.0)
[2024-01-12 20:43] LABS: APPEARANCE,URINE SLT CLOUDY
[2024-01-12 20:44] LABS: BACTERIA,URINE FEW (NEGATIVE); MUCUS,URINE LIGHT (NONE-MOD); RBC,URINE 50-75 (0-2/HPF); SQUAMOUS EPITHELIAL CELLS,UR FEW
[2024-01-12 21:42] VITALS: BP 134/87; PULSE 79
== END 2024-01-12 21:42 | disposition home or self-care (01) ==
LOC: MW.ED 17:56
DX: H81.391 Other peripheral vertigo, right ear (principal); Z88.5 Allergy status to narcotic agent; Z79.899 Other long term (current) drug therapy; Z90.49 Acquired absence of other specified parts of digestive tract; Z75.8 Other problems related to medical facilities and other health care
CPT/HCPCS: 36415; 70450; 70496; 70498; 80053; 81001; 83690; 85025; 96361; 96374; 99284; A9270; J2405; J3490; J7030; Q9967